=== PATIENT | male | born 1975 | race Caucasian/White ===

== ENCOUNTER 2018-07-21 15:52 | Inpatient (IN) | payer OTHER ==
[~2018-07-21] VITALS: Ht 175.3 cm; Wt 95.3 kg
[2018-07-21] MEDS ORDERED: ONDANSETRON HCL 4MG/2ML INJ IV STA (16:09)
[2018-07-21] MEDS ORDERED: SODIUM CHLORIDE 0.9% 1,000 ML IV ONE (16:09)
[2018-07-21 16:50] LABS: BG BASE EXCESS -4.2 mmol/L (-2.0-2.0); BG CARBOXYHEMOGLOBIN 0.4 % (0.5-1.5); BG FRACTION INSPIRED OXYGEN 21; BG HCO3 ACT 20.1 mmol/L (22.0-26.0); BG METHEMOGLOBIN 0.3 % (0.0-1.5); BG OXYHEMOGLOBIN 96.3 % (94.0-97.0); BG PCO2 33.9 mmHg (35.0-45.0); BG PO2 92.9 mmHg (75.0-100.0); BG SAMPLE SITE RIGHT BRACHIAL; BG TOTAL HEMOGLOBIN 11.9 g/dL (12.0-18.0); BG VENT MODE ROOM AIR
[2018-07-21 16:53] LABS: HEMATOCRIT. 33.1 % (42.0-52.0); HEMOGLOBIN. 11.3 g/dL (14.0-18.0); MEAN CORPUSCULAR HEMOGLOBIN 30.2 pg (28.0-32.0); MEAN CORPUSCULAR VOLUME 88.5 fL (80.0-94.0); MEAN PLATELET VOLUME 7.7 fl (7.4-10.4); PLATELET 257 x1000/uL (130-400); RED BLOOD CELL COUNT 3.73 mill/uL (4.7-6.1); RED CELL DISTRIBUTION WIDTH 13.5 % (11.6-14.6)
[2018-07-21 16:54] LABS: CHLORIDE 97 mEq/L (98-107)
[2018-07-21 16:57] LABS: INR 1.1; PARTIAL THROMBOPLASTIN TIME 34.1 sec (23.4-31.0); PROTHROMBIN TIME 10.8 sec (9.6-11.0)
[2018-07-21 16:59] LABS: ETHANOL BLOOD < 10 mg/dL
[2018-07-21 17:01] LABS: BETA HYDROXYBUTYRATE 0.9 mMol/L (0.0-0.3)
[2018-07-21 17:03] LABS: CREATINE KINASE 44 IU/L (39-308); CREATINE KINASE MB FRACTION < 1.0 ng/mL (0.5-3.6)
[2018-07-21 17:05] LABS: PLATELET ESTIMATE NORMAL
[2018-07-21] MEDS ORDERED: DAPTOMYCIN 250 MG in SODIUM CHLORIDE 0.9% 50 ML IV STA (17:06)
[2018-07-21] MEDS ORDERED: ONDANSETRON HCL 4MG/2ML INJ IV ONE (17:15)
[2018-07-21] MEDS ORDERED: MORPHINE SULFATE 4 MG/ML CPJ (NOT FOR IM USE) IV ONE (17:15)
[2018-07-21] MEDS ORDERED: INSULIN REGULAR (HUMULIN R) 300UNITS/3ML IV ONE (17:30)
[2018-07-21] MEDS ORDERED: DAPTOMYCIN 500 MG in SODIUM CHLORIDE 0.9% 50 ML IV SCH (18:30)
[2018-07-21 19:13] LABS: CLARITY URINE CLOUDY (CLEAR); COLOR URINE YELLOW (YELLOW); KETONES URINE 1+ (NEGATIVE); LEUKOCYTE ESTERASE URINE 2+ (NEGATIVE); NITRITE URINE NEGATIVE (NEGATIVE); OCCULT BLOOD URINE 2+ (NEGATIVE); PROTEIN URINE 1+ (NEGATIVE); SPECIFIC GRAVITY URINE 1.024 (1.005-1.030); UROBILINOGEN URINE 0.2 E.U./dL (0.2-1.0)
[2018-07-21 19:21] LABS: *AMPHETAMINES SCREEN URINE NEGATIVE (NEGATIVE); *BARBITURATES SCREEN URINE NEGATIVE (NEGATIVE); *BENZODIAZEPINES SCREEN URINE NEGATIVE (NEGATIVE); *COCAINE SCREEN URINE NEGATIVE (NEGATIVE); METHADONE URINE SCREEN NEGATIVE (NEGATIVE)
[2018-07-21 19:22] LABS: CANNABINOID URINE SCREEN NEGATIVE (NEGATIVE); OPIATES URINE SCREEN NEGATIVE (NEGATIVE); PHENCYCLIDINE URINE SCREEN NEGATIVE (NEGATIVE)
[2018-07-21] MEDS ORDERED: ONDANSETRON HCL 4MG/2ML INJ IV PRN (20:00)
[2018-07-21] MEDS ORDERED: ACETAMINOPHEN 325MG TABLET PO PRN (20:00)
[2018-07-21] MEDS ORDERED: DEXTROSE 50% WATER 50ML SYRINGE IV PRN (20:00)
[2018-07-21] MEDS ORDERED: CLONIDINE 0.1MG TABLET PO PRN (20:00)
[2018-07-21] MEDS ORDERED: INSULIN LISPRO 100 UNITS/ML SUBCUT SCH (21:00)
[2018-07-21] MEDS: HYDROCODONE/ACETAMINOPHEN 5/325MG TABLET PO PRN (21:08)
[2018-07-21] MEDS ORDERED: MAGNESIUM/ALUMINUM HYDROXIDE/SIMETHICONE 30ML UDC PO PRN (22:00)
[2018-07-22 01:10] VITALS: BP 157/84
[2018-07-22] MEDS ORDERED: DEXTROSE 50% WATER 50ML SYRINGE IV PRN (01:14)
[2018-07-22] MEDS: HYDROCODONE/ACETAMINOPHEN 5/325MG TABLET PO PRN ×5 (01:38→21:12)
[2018-07-22 02:00] VITALS: BP 157/84
[2018-07-22] MEDS ORDERED: BISA-81 PO (03:33)
[2018-07-22] MEDS ORDERED: TRIA1TAB92 PO (03:33)
[2018-07-22] MEDS ORDERED: LISI40TA4 PO (03:33)
[2018-07-22] MEDS ORDERED: CLON-457 PO (03:33)
[2018-07-22] MEDS ORDERED: METF-416 PO (03:33)
[2018-07-22] MEDS ORDERED: ATOR20TA65 PO (03:33)
[2018-07-22 04:00] VITALS: BP 126/72
[2018-07-22] MEDS: INSULIN LISPRO 100 UNITS/ML SUBCUT SCH ×4 (06:33→21:10)
[2018-07-22] MEDS: BLOOD SUGAR DIAGNOSTIC STRIP TEST SCH ×4 (06:34→21:12)
[2018-07-22] MEDS: METOCLOPRAMIDE HCL 5MG TABLET PO SCH ×3 (06:34→20:56)
[2018-07-22] MEDS: OMEPRAZOLE 20MG CAPSULE EXTENDED RELEASE PO SCH (06:34)
[2018-07-22 07:30] LABS: BASOPHILS % 0.4 % (0.0-2.0); EOSINOPHILS % 0.1 % (0.0-5.0); HEMATOCRIT. 31.1 % (42.0-52.0); HEMOGLOBIN. 10.5 g/dL (14.0-18.0); LYMPHOCYTES % 8.2 % (20.0-50.0); MEAN CORPUSCULAR HEMOGLOBIN 29.6 pg (28.0-32.0); MEAN CORPUSCULAR VOLUME 87.6 fL (80.0-94.0); MEAN PLATELET VOLUME 7.9 fl (7.4-10.4); MONOCYTES % 10.5 % (2.0-8.0); NEUTROPHILS % 80.8 % (40.0-76.0); PLATELET 252 x1000/uL (130-400); RED BLOOD CELL COUNT 3.55 mill/uL (4.7-6.1); RED CELL DISTRIBUTION WIDTH 13.3 % (11.6-14.6)
[2018-07-22 08:00] VITALS: BP 127/78
[2018-07-22 09:00] LABS: CHLORIDE 101 mEq/L (98-107)
[2018-07-22 09:05] LABS: PHOSPHORUS 3.1 mg/dL (2.5-4.9)
[2018-07-22 12:00] VITALS: BP 117/75
[2018-07-22] MEDS: LISINOPRIL 40MG TABLET PO SCH (13:14)
[2018-07-22] MEDS: CLONIDINE 0.1MG TABLET PO SCH (17:26)
[2018-07-22] MEDS: DAPTOMYCIN 500 MG in SODIUM CHLORIDE 0.9% 50 ML IV SCH (17:27)
[2018-07-22] MEDS: CEFEPIME 1,000 MG in DEXTROSE 5% WATER 50 ML IV SCH (18:30)
[2018-07-22 20:00] VITALS: BP 96/48
[2018-07-22] MEDS: ATORVASTATIN CALCIUM 20MG TABLET PO SCH (20:55)
[2018-07-22] MEDS ORDERED: DAPTOMYCIN 250 MG in SODIUM CHLORIDE 0.9% 50 ML IV SCH (21:00)
[2018-07-22] MEDS: METRONIDAZOLE 500MG TABLET PO SCH (21:51)
[2018-07-22] MEDS ORDERED: INSULIN GLARGINE UD 100 UNITS/ML SYR SUBCUT SCH ×2 (22:00)
[2018-07-23] VITALS: BP 101/59
[2018-07-23] MEDS: HYDROCODONE/ACETAMINOPHEN 5/325MG TABLET PO PRN ×5 (02:26→20:58)
[2018-07-23 04:00] VITALS: BP 98/51
[2018-07-23] MEDS: METOCLOPRAMIDE HCL 5MG TABLET PO SCH ×3 (06:45→21:52)
[2018-07-23] MEDS: BLOOD SUGAR DIAGNOSTIC STRIP TEST SCH ×4 (06:48→21:52)
[2018-07-23] MEDS: OMEPRAZOLE 20MG CAPSULE EXTENDED RELEASE PO SCH (06:48)
[2018-07-23] MEDS: CEFEPIME 1,000 MG in DEXTROSE 5% WATER 50 ML IV SCH ×2 (06:53→17:20)
[2018-07-23] MEDS: INSULIN LISPRO 100 UNITS/ML SUBCUT SCH ×4 (06:57→22:01)
[2018-07-23 06:58] LABS: CHLORIDE 100 mEq/L (98-107)
[2018-07-23 07:05] LABS: LDL CHOLESTEROL 81 mg/dL (5-100)
[2018-07-23 07:06] LABS: HDL CHOLESTEROL 20 mg/dL (40-59)
[2018-07-23 07:12] LABS: BASOPHILS % 0.5 % (0.0-2.0); EOSINOPHILS % 1.2 % (0.0-5.0); HEMATOCRIT. 30.2 % (42.0-52.0); HEMOGLOBIN. 10.4 g/dL (14.0-18.0); LYMPHOCYTES % 12.3 % (20.0-50.0); MEAN CORPUSCULAR HEMOGLOBIN 29.8 pg (28.0-32.0); MEAN CORPUSCULAR VOLUME 86.9 fL (80.0-94.0); MEAN PLATELET VOLUME 7.6 fl (7.4-10.4); MONOCYTES % 11.7 % (2.0-8.0); NEUTROPHILS % 74.3 % (40.0-76.0); PLATELET 245 x1000/uL (130-400); RED BLOOD CELL COUNT 3.48 mill/uL (4.7-6.1)
[2018-07-23 08:00] VITALS: BP 103/62
[2018-07-23] MEDS: CLONIDINE 0.1MG TABLET PO SCH (08:37)
[2018-07-23] MEDS: LISINOPRIL 40MG TABLET PO SCH (08:40)
[2018-07-23] MEDS: METRONIDAZOLE 500MG TABLET PO SCH ×2 (08:55→21:52)
[2018-07-23] MEDS ORDERED: TRIAMTERENE/HYDROCHLOROTHIAZIDE 37.5/25MG CAPSULE PO SCH (09:00)
[2018-07-23] MEDS: INSULIN GLARGINE UD 100 UNITS/ML SYR SUBCUT SCH ×2 (11:40→22:02)
[2018-07-23 12:00] VITALS: BP 136/73
[2018-07-23] MEDS: SODIUM CHLORIDE 0.9% 1,000 ML IV SCH (14:20)
[2018-07-23] MEDS: MORPHINE SULFATE 2 MG/ML CPJ (NOT FOR IM USE) IV PRN ×2 (14:24→23:38)
[2018-07-23 16:00] VITALS: BP 120/81
[2018-07-23] MEDS: DAPTOMYCIN 500 MG in SODIUM CHLORIDE 0.9% 50 ML IV SCH (16:35)
[2018-07-23 20:00] VITALS: BP 133/82
[2018-07-23] MEDS: ATORVASTATIN CALCIUM 20MG TABLET PO SCH (21:52)
[2018-07-23] MEDS: LISINOPRIL 10MG TABLET PO SCH (21:53)
[2018-07-24] VITALS: BP 121/76
[2018-07-24] MEDS: HYDROCODONE/ACETAMINOPHEN 5/325MG TABLET PO PRN ×5 (03:12→22:18)
[2018-07-24 04:00] VITALS: BP 127/72
[2018-07-24] MEDS: SODIUM CHLORIDE 0.9% 1,000 ML IV SCH ×3 (04:19→22:18)
[2018-07-24] MEDS: CEFEPIME 1,000 MG in DEXTROSE 5% WATER 50 ML IV SCH ×2 (04:24→18:40)
[2018-07-24] MEDS: OMEPRAZOLE 20MG CAPSULE EXTENDED RELEASE PO SCH (06:19)
[2018-07-24] MEDS: METOCLOPRAMIDE HCL 5MG TABLET PO SCH ×3 (06:19→21:11)
[2018-07-24] MEDS: BLOOD SUGAR DIAGNOSTIC STRIP TEST SCH ×4 (06:19→21:12)
[2018-07-24] MEDS: INSULIN LISPRO 100 UNITS/ML SUBCUT SCH ×4 (06:20→21:30)
[2018-07-24] MEDS: MORPHINE SULFATE 2 MG/ML CPJ (NOT FOR IM USE) IV PRN ×2 (06:30→15:11)
[2018-07-24 08:00] VITALS: BP 131/73
[2018-07-24 08:18] LABS: BASOPHILS % 0.6 % (0.0-2.0); EOSINOPHILS % 0.8 % (0.0-5.0); HEMATOCRIT. 29.5 % (42.0-52.0); HEMOGLOBIN. 10.3 g/dL (14.0-18.0); LYMPHOCYTES % 9.4 % (20.0-50.0); MEAN CORPUSCULAR HEMOGLOBIN 30.2 pg (28.0-32.0); MEAN CORPUSCULAR VOLUME 86.7 fL (80.0-94.0); MEAN PLATELET VOLUME 7.3 fl (7.4-10.4); MONOCYTES % 10.1 % (2.0-8.0); NEUTROPHILS % 79.1 % (40.0-76.0); PLATELET 247 x1000/uL (130-400); RED BLOOD CELL COUNT 3.41 mill/uL (4.7-6.1); RED CELL DISTRIBUTION WIDTH 13.2 % (11.6-14.6)
[2018-07-24] MEDS: METRONIDAZOLE 500MG TABLET PO SCH ×2 (08:25→21:11)
[2018-07-24] MEDS: LISINOPRIL 10MG TABLET PO SCH ×2 (08:26→21:12)
[2018-07-24 10:10] LABS: CHLORIDE 103 mEq/L (98-107)
[2018-07-24] MEDS: INSULIN GLARGINE UD 100 UNITS/ML SYR SUBCUT SCH ×2 (10:23→22:17)
[2018-07-24 12:00] VITALS: BP 114/70
[2018-07-24] MEDS ORDERED: MAGNESIUM 1 G PREMIX 100 ML IV NR (13:00)
[2018-07-24 16:00] VITALS: BP 125/80
[2018-07-24] MEDS: DAPTOMYCIN 500 MG in SODIUM CHLORIDE 0.9% 50 ML IV SCH (17:33)
[2018-07-24 20:00] VITALS: BP 135/85
[2018-07-24] MEDS: ATORVASTATIN CALCIUM 20MG TABLET PO SCH (21:11)
[2018-07-25] VITALS: BP 148/84
[2018-07-25] MEDS: HYDROCODONE/ACETAMINOPHEN 5/325MG TABLET PO PRN ×2 (02:41→09:15)
[2018-07-25 04:00] VITALS: BP 130/82
[2018-07-25] MEDS: CEFEPIME 1,000 MG in DEXTROSE 5% WATER 50 ML IV SCH (05:17)
[2018-07-25] MEDS: METOCLOPRAMIDE HCL 5MG TABLET PO SCH (05:43)
[2018-07-25] MEDS: OMEPRAZOLE 20MG CAPSULE EXTENDED RELEASE PO SCH (05:45)
[2018-07-25] MEDS: BLOOD SUGAR DIAGNOSTIC STRIP TEST SCH (05:45)
[2018-07-25 06:17] LABS: HEMOGLOBIN. 10.4 g/dL (14.0-18.0); MEAN CORPUSCULAR HEMOGLOBIN 30.1 pg (28.0-32.0); MEAN CORPUSCULAR VOLUME 87.1 fL (80.0-94.0); MEAN PLATELET VOLUME 7.6 fl (7.4-10.4); PLATELET 265 x1000/uL (130-400); RED BLOOD CELL COUNT 3.44 mill/uL (4.7-6.1); RED CELL DISTRIBUTION WIDTH 13.3 % (11.6-14.6)
[2018-07-25] MEDS: INSULIN LISPRO 100 UNITS/ML SUBCUT SCH (06:43)
[2018-07-25] MEDS: MORPHINE SULFATE 2 MG/ML CPJ (NOT FOR IM USE) IV PRN (07:34)
[2018-07-25 07:44] LABS: CHLORIDE 104 mEq/L (98-107)
[2018-07-25 08:00] VITALS: BP 186/94
[2018-07-25] MEDS: METRONIDAZOLE 500MG TABLET PO SCH (08:13)
[2018-07-25] MEDS: LISINOPRIL 10MG TABLET PO SCH (08:14)
[2018-07-25] MEDS ORDERED: CEFTRIAXONE 2 G PREMIX 50 ML IV SCH (08:30)
[2018-07-25] MEDS: INSULIN GLARGINE UD 100 UNITS/ML SYR SUBCUT SCH (09:11)
[2018-07-25] MEDS ORDERED: CEFTRIAXONE 2 G in DEXTROSE 5% WATER 50 ML IV SCH (09:15)
[2018-07-25 09:40] VITALS: BP 144/85
[2018-07-25 09:53] VITALS: BP 144/85
[2018-07-25 11:14] LABS: PLATELET ESTIMATE NORMAL
== END 2018-07-25 10:30 | disposition home or self-care (01) | DRG 854 ==
LOC: ER 15:59 → ENRESERV 20:30 → EDBEDREQSVC 07-22 00:03 → 5WST 07-22 00:12 → ENRESERV 07-22 00:14 → EDBEDREQTM 07-22 00:15
PROVIDERS: ADMIT Family Medicine Adult Medicine; ATTEND Family Medicine Adult Medicine
PROC: 0QBP0ZZ Excision of Left Metatarsal, Open Approach (ICD-10-PCS; principal; 2018-07-23)
DX: A41.9 Sepsis, unspecified organism (principal); E87.1 Hypo-osmolality and hyponatremia; L02.612 Cutaneous abscess of left foot; M84.475A Pathological fracture, left foot, initial encounter for fracture; M86.8X7 Other osteomyelitis, ankle and foot; N39.0 Urinary tract infection, site not specified; D64.9 Anemia, unspecified; E11.42 Type 2 diabetes mellitus with diabetic polyneuropathy; E11.621 Type 2 diabetes mellitus with foot ulcer; E11.65 Type 2 diabetes mellitus with hyperglycemia; E11.69 Type 2 diabetes mellitus with other specified complication; I10 Essential (primary) hypertension; E11.51 Type 2 diabetes mellitus with diabetic peripheral angiopathy without gangrene; K29.70 Gastritis, unspecified, without bleeding; L97.529 Non-pressure chronic ulcer of other part of left foot with unspecified severity; Z91.14 Patient's other noncompliance with medication regimen; Z79.4 Long term (current) use of insulin; Z82.49 Family history of ischemic heart disease and other diseases of the circulatory system; Z86.14 Personal history of Methicillin resistant Staphylococcus aureus infection; Z91.19 Patient's noncompliance with other medical treatment and regimen; Z79.899 Other long term (current) drug therapy; Z83.3 Family history of diabetes mellitus; Z79.84 Long term (current) use of oral hypoglycemic drugs; Z89.412 Acquired absence of left great toe
CPT/HCPCS: 36415; 36600; 71045; 73630; 73721; 80048; 80061; 80305; 80320; 82010; 82375; 82550; 82553; 82805; 82962; 83036; 83605; 83735; 83880; 84100; 84484; 85651; 86140; 87070; 87077; 87186; 93005; 93306; 93923; 96374; 96375; 99285; J0692; J0696; J0878; J1815; J2270; J2405; J3475; J7030; J7050; J7060; J8597; G0480